=== PATIENT | female | born 1980 | race Asian ===

== ENCOUNTER 2024-12-05 04:25 | Inpatient (IN) | payer OTHER, SELFPAY ==
[2024-12-05] VITALS (36 sets, daily range): BP systolic 121–185; BP diastolic 78–132; BMI 22.9; BMI 20.9
[2024-12-05 01:35] LABS: Hematocrit 37.8 % (37.0-47.0); Hemoglobin 13.2 g/dL (12.0-16.0); Mean Corp Hgb Conc. 34.9 g/dL (33.0-37.0); Mean Corpuscular Volume 80.1 fL (81.0-99.0); Nucleated Red Blood Cells % 0 %; Platelet Count 370 10^3/uL (130-400); Red Cell Dist. Width 12.3 % (11.5-14.5)
[2024-12-05] MEDS: NSS 1000 IV (01:42)
[2024-12-05 01:51] LABS: HCG, Serum Qualitative Screen Negative
[2024-12-05 01:57] LABS: ALT (SGPT) 12 U/L (0-35); AST (SGOT) 20 U/L (14-36); Albumin 4.6 g/dl (3.5-5.0); Alkaline Phosphatase 82 U/L (38-126); Blood Urea Nitrogen 12 mg/dl (7-17); Calcium 9.5 mg/dl (8.4-10.2); Carbon Dioxide 25 mmol/L (22-30); Chloride 103 mmol/L (98-107); Estimated Creatinine Clearance 107 ml/min; Glucose 110 mg/dl (70-99); Potassium 3.4 mmol/L (3.5-5.1); Sodium 139 mmol/L (135-145); Total Protein 8.1 g/dl (6.3-8.2); eGFR > 60.00
[2024-12-05] MEDS: TORADOL 15 MG IV ×2 (02:01→06:14)
[2024-12-05] MEDS: ZOFRAN 4 MG IV ×3 (02:01→19:34)
[2024-12-05] MEDS: BELBUCA 300 MCG BUCCAL ×7 (02:25→23:33)
[2024-12-05] MEDS: REGLAN 10 MG IV (02:29)
--- NOTE | 2024-12-05 02:48 | ED.GENMED ---
History of Present Illness
<Jillian Gomes PA-C - Last Filed: 12/05/24 06:01>
General
Chief Complaint: Withdrawal Symptoms
Source: patient
Exam Limitations: none
Time Seen by Provider: 12/05/24 01:48
Nursing documentation reviewed up to this point in time: agreed with
History of Present Illness
History of Present Illness:
44-year-old female with a past medical history of opioid use disorder presents to the ER today with concerns of vomiting and abdominal discomfort. Patient was brought to the ER via EMS for nausea and vomiting. She is in police custody and is going
to longterm for drug use. Patient reports that she uses a bag of fentanyl every 3 hours. Her last use of this was at 7 PM. A few hours later, in custody, she started to lay on the floor and have profuse vomiting. She also complains of dizziness
intermittently and runny nose. Patient is reporting that 'it is from the drugs'. She denies any recent head or neck trauma. She denies any headaches. She denies any chest pain or shortness of breath. Patient reports that she also feels body
aches as well. She has not had any fevers or chills. She denies any other illicit drug use. She denies any alcohol use. She has no medical problems and is currently not taking any prescription medications
Review of Systems
<Jillian Gomes PA-C - Last Filed: 12/05/24 06:01>
Review of Systems
All Other Systems: ROS reviewed and negative except as documented in HPI and ROS
Phy Exam
<Jillian Gomes PA-C - Last Filed: 12/05/24 06:01>
Physical Exam
Physical Exam:
General: Patient has resting tremors, is agitated
Skin: Warm and dry, no rashes or lesions
Head: Normocephalic, atraumatic
Eyes: Sclera non-icteric. EOMs intact.
Nose: Copious amounts of clear mucus from the nares bilaterally
Cardiac: Regular rate and rhythm, no murmurs
Peripheral Vascular: No lower extremity swelling or edema
Pulm: Normal respiratory effort, no wheezes, rales, rhonchi
Abdomen: Abdomen is non-distended, no palpable abdominal masses
Neuro: CN II-XII intact, no focal neurologic deficits. Resting tremors of bilateral upper extremities.
Psychiatric: Appropriate mood and affect.
Course
<Jillian Gomes PA-C - Last Filed: 12/05/24 06:01>
Orders/Labs/Results
Orders:
Orders
12/05/24 01:25
Test Result ONCE
12/05/24 01:26
Alcohol Urgent
Complete Blood Count/With Diff Urgent
Comprehensive Metabolic Panel Urgent
HCG, Serum Qualitative Screen Urgent
12/05/24 01:41
0.9% Sodium Chloride 1000 ml [Nss] 1,000 ml IV BOLUS
12/05/24 01:46
Electrocardiogram (*1) Urgent
Reason for Study: Abdominal Pain
EKG- Treatment ONCE
12/05/24 01:56
Urine Drug Abuse Screen Urgent
Ketorolac [Toradol] 15 mg IV NOW STA
Ondansetron Injectable [Zofran] 4 mg IV NOW STA
12/05/24 01:57
Add On- LAB Urgent
Tests Added?: alcohol
12/05/24 02:19
Buprenorphine HCl [Belbuca] 300 mcg BUCCAL NOW STA
12/05/24 02:27
Metoclopramide [Reglan] 10 mg IV NOW STA
12/05/24 02:45
Dicyclomine HCl [Bentyl] 20 mg IM NOW STA
12/05/24 02:55
Buprenorphine HCl [Belbuca] 300 mcg BUCCAL NOW STA
12/05/24 03:11
Potassium Chloride [KCl] 40 meq 0.9% Sodium Chloride 250 ml [Nss] 250 ml IV NOW
12/05/24 03:17
Lorazepam [Ativan] 2 mg IV NOW STA
12/05/24 04:04
Clonidine [Catapres] 0.1 mg PO NOW STA
12/05/24 04:13
Admit/Transfer Patient As Directed
Co-Sign Provider:
Level of Care: Inpatient admission
Assign to:: IMU- Intermediate Care
Physician / Group: Guerrero
Diagnosis: opioid withdrawal
Reason for Hospitalization: Opioid withdrawal
Expected length of stay greater than two midnights?: Yes
ELOS- Estimated Length of Stay in days: 2
I certify the patient meets the requirements for IP care: Yes
PRN Pain Medication Management As Directed
May give lesser potent ordered pain med per pt: Yes
preference::
Protocol:: Medication orders for pain may be administered in a
manner that supports deferring to patient preference
when the pt is:
- Requesting an ordered lesser potent pain medication.
Least to most potent pain medications are defined
as: acetaminophen < NSAID < tramadol < opioids
(morphine, oxycodone, hydromorphone).
- Requesting a lesser dose of the same medication IF
ORDERED.
- Requesting a less intrusive route of administration
if both routes are prescribed by the provider (PO <
IV).
12/05/24 05:54
0.9% Sodium Chloride [Nss (Preservative Free)] See Protocol IV PRN PRN
Clonidine [Catapres] 0.1 mg PO Q6HPRN PRN
Diphenhydramine [Benadryl] 50 mg PO Q6HPRN PRN
Ketorolac [Toradol] 15 mg IV Q6HPRN PRN
Lactated Ringers [Lr] 1,000 ml IV 125 mls/hr
Lorazepam [Ativan] 2 mg IV ONCE PRN PRN
Naloxone [Narcan] 0.4 mg IV Q5MPRN PRN
Ondansetron Injectable [Zofran] 4 mg IV Q6HPRN PRN
Oxycodone [Roxicodone] 20 mg PO Q4HPRN PRN
Tizanidine [Zanaflex] 2 mg PO Q6HPRN PRN
12/05/24 05:54
Add On- LAB Urgent
Comments:: Xylazine Urine Drug Screen (send out)
Tests Added?: Xylazine
Electrocardiogram (*1) Routine
Reason for Study: QTc Monitoring
Comment: if not already done in ED
Case Management Consult ONCE
Case Management Consult: Other
Comment: opioid withdrawal
Fentanyl, Urine Urgent
Urine Drug Abuse Screen Urgent
Clinical Opioid Withdrawal Scale (COWS) Q4
Frequency:: now, Q4 hours x 24 hours, then PRN based on symptoms
Sequential Compression Device [Pneumatic Compression Sleeves] As Directed
Type: Knee high
DX Deep Vein Thrombosis Video Routine
12/05/24 Breakfast
Regular
At Your Request: Limited Participation
12/05/24 06:38
Alcohol Routine
[id number] IN AM
12/05/24 08:00
Buprenorphine HCl [Belbuca] 300 mcg BUCCAL Q4
Oxycodone Controlled Release [Oxycontin (Controlled Release)] 40 mg PO Q8
12/06/24 08:00
Buprenorphine [Subutex] 2 mg SL QID
12/07/24 08:00
Buprenorphine [Subutex] 4 mg SL QID
Oxycodone Controlled Release [Oxycontin (Controlled Release)] 20 mg PO Q8
12/08/24 04:16
Buprenorphine [Subutex] 2 mg SL Q4HPRN PRN
12/08/24 08:00
Buprenorphine [Subutex] 8 mg SL BID@08,1999
12/09/24 08:00
Buprenorphine [Subutex] 16 mg SL DAILY@0800
Abnormal Lab Results
12/05/24
01:26
WBC 14.6 H 10^3/uL
(4.8-10.8)
MCV 80.1 L fL
(81.0-99.0)
Absolute Neuts (auto) 12.1 H 10^3/uL
(1.4-6.5)
Neutrophils % 82.9 H %
(42.2-75.2)
Lymphocytes % 12.6 L %
(20.5-51.1)
Potassium 3.4 L mmol/L
(3.5-5.1)
Creatinine 0.5 L mg/dL
(0.6-1.0)
Glucose 110 H mg/dl
(70-99)
12/05/24 01:26
12/05/24 01:26
Vital Signs
Initial and Last Documented VS:
Initial Vital Signs
Temp Pulse Resp BP Pulse Ox
98.5 F 69 16 142/109 100
12/05/24 01:17 12/05/24 01:17 12/05/24 01:17 12/05/24 01:17 12/05/24 01:17
Last Documented Vital Signs
Temp Pulse Resp BP Pulse Ox
99.8 F 87 24 148/88 99
12/05/24 06:06 12/05/24 06:36 12/05/24 06:36 12/05/24 06:36 12/05/24 06:36
<Nida Martin, - Last Filed: 12/05/24 06:55>
Orders/Labs/Results
Orders:
Orders
12/05/24 01:25
Test Result ONCE
12/05/24 01:26
Alcohol Urgent
Complete Blood Count/With Diff Urgent
Comprehensive Metabolic Panel Urgent
HCG, Serum Qualitative Screen Urgent
12/05/24 01:41
0.9% Sodium Chloride 1000 ml [Nss] 1,000 ml IV BOLUS
12/05/24 01:46
Electrocardiogram (*1) Urgent
Reason for Study: Abdominal Pain
EKG- Treatment ONCE
12/05/24 01:56
Urine Drug Abuse Screen Urgent
Ketorolac [Toradol] 15 mg IV NOW STA
Ondansetron Injectable [Zofran] 4 mg IV NOW STA
12/05/24 01:57
Add On- LAB Urgent
Tests Added?: alcohol
12/05/24 02:19
Buprenorphine HCl [Belbuca] 300 mcg BUCCAL NOW STA
12/05/24 02:27
Metoclopramide [Reglan] 10 mg IV NOW STA
12/05/24 02:45
Dicyclomine HCl [Bentyl] 20 mg IM NOW STA
12/05/24 02:55
Buprenorphine HCl [Belbuca] 300 mcg BUCCAL NOW STA
12/05/24 03:11
Potassium Chloride [KCl] 40 meq 0.9% Sodium Chloride 250 ml [Nss] 250 ml IV NOW
12/05/24 03:17
Lorazepam [Ativan] 2 mg IV NOW STA
12/05/24 04:04
Clonidine [Catapres] 0.1 mg PO NOW STA
12/05/24 04:13
Admit/Transfer Patient As Directed
Co-Sign Provider:
Level of Care: Inpatient admission
Assign to:: IMU- Intermediate Care
Physician / Group: Guerrero
Diagnosis: opioid withdrawal
Reason for Hospitalization: Opioid withdrawal
Expected length of stay greater than two midnights?: Yes
ELOS- Estimated Length of Stay in days: 2
I certify the patient meets the requirements for IP care: Yes
PRN Pain Medication Management As Directed
May give lesser potent ordered pain med per pt: Yes
preference::
Protocol:: Medication orders for pain may be administered in a
manner that supports deferring to patient preference
when the pt is:
- Requesting an ordered lesser potent pain medication.
Least to most potent pain medications are defined
as: acetaminophen < NSAID < tramadol < opioids
(morphine, oxycodone, hydromorphone).
- Requesting a lesser dose of the same medication IF
ORDERED.
- Requesting a less intrusive route of administration
if both routes are prescribed by the provider (PO <
IV).
12/05/24 05:54
0.9% Sodium Chloride [Nss (Preservative Free)] See Protocol IV PRN PRN
Clonidine [Catapres] 0.1 mg PO Q6HPRN PRN
Diphenhydramine [Benadryl] 50 mg PO Q6HPRN PRN
Ketorolac [Toradol] 15 mg IV Q6HPRN PRN
Lactated Ringers [Lr] 1,000 ml IV 125 mls/hr
Lorazepam [Ativan] 2 mg IV ONCE PRN PRN
Naloxone [Narcan] 0.4 mg IV Q5MPRN PRN
Ondansetron Injectable [Zofran] 4 mg IV Q6HPRN PRN
Oxycodone [Roxicodone] 20 mg PO Q4HPRN PRN
Tizanidine [Zanaflex] 2 mg PO Q6HPRN PRN
12/05/24 05:54
Add On- LAB Urgent
Comments:: Xylazine Urine Drug Screen (send out)
Tests Added?: Xylazine
Electrocardiogram (*1) Routine
Reason for Study: QTc Monitoring
Comment: if not already done in ED
Case Management Consult ONCE
Case Management Consult: Other
Comment: opioid withdrawal
Fentanyl, Urine Urgent
Urine Drug Abuse Screen Urgent
Clinical Opioid Withdrawal Scale (COWS) Q4
Frequency:: now, Q4 hours x 24 hours, then PRN based on symptoms
Sequential Compression Device [Pneumatic Compression Sleeves] As Directed
Type: Knee high
DX Deep Vein Thrombosis Video Routine
12/05/24 Breakfast
Regular
At Your Request: Limited Participation
12/05/24 06:38
Alcohol Routine
[id number] IN AM
12/05/24 08:00
Buprenorphine HCl [Belbuca] 300 mcg BUCCAL Q4
Oxycodone Controlled Release [Oxycontin (Controlled Release)] 40 mg PO Q8
12/06/24 08:00
Buprenorphine [Subutex] 2 mg SL QID
12/07/24 08:00
Buprenorphine [Subutex] 4 mg SL QID
Oxycodone Controlled Release [Oxycontin (Controlled Release)] 20 mg PO Q8
12/08/24 04:16
Buprenorphine [Subutex] 2 mg SL Q4HPRN PRN
12/08/24 08:00
Buprenorphine [Subutex] 8 mg SL BID@0800,2000
12/09/24 08:00
Buprenorphine [Subutex] 16 mg SL DAILY@0800
Abnormal Lab Results
12/05/24
01:26
WBC 14.6 H 10^3/uL
(4.8-10.8)
MCV 80.1 L fL
(81.0-99.0)
Absolute Neuts (auto) 12.1 H 10^3/uL
(1.4-6.5)
Neutrophils % 82.9 H %
(42.2-75.2)
Lymphocytes % 12.6 L %
(20.5-51.1)
Potassium 3.4 L mmol/L
(3.5-5.1)
Creatinine 0.5 L mg/dL
(0.6-1.0)
Glucose 110 H mg/dl
(70-99)
12/05/24 01:26
12/05/24 01:26
Vital Signs
Initial and Last Documented VS:
Initial Vital Signs
Temp Pulse Resp BP Pulse Ox
98.5 F 69 16 142/109 100
12/05/24 01:17 12/05/24 01:17 12/05/24 01:17 12/05/24 01:17 12/05/24 01:17
Last Documented Vital Signs
Temp Pulse Resp BP Pulse Ox
99.8 F 87 24 148/88 99
12/05/24 06:06 12/05/24 06:36 12/05/24 06:36 12/05/24 06:36 12/05/24 06:36
<Jillian Gomes PA-C - Last Filed: 12/05/24 06:01>
MDM/Problems Addressed
Differential Diagnosis Includes:
Differentials include acute opioid withdrawal, xylazine withdrawal, alcohol withdrawal, gastroenteritis, functional gastrointestinal disorder, vestibular neuritis
MDM/Problems Addressed:
44-year-old female with a past medical history of opioid use disorder presents to the ER today with concerns of vomiting and abdominal discomfort. History and physical exam is consistent with acute opioid withdrawal. Patient was started on Belbuca
per opioid withdrawal algorithm. She is unable to tolerate p.o. oxycodone. Given multiple doses of antiemetics with initial relief but then symptoms would return. Please see update notes. On reassessment, patient became acutely hypertensive, is
still unable to tolerate p.o.. Will give dose of clonidine. Patient does have mild hypokalemia, in the setting of persistent vomiting, will replete. Patient will be referred for admission.
<Jillian Gomes PA-C - Last Filed: 12/05/24 06:01>
*Pulse Oximetry
SaO2: 100
Oxygen Mode of Delivery: Room air
Patient hypoxic: no
*Critical Care Note
Total Time (30-74mins, 75-104mins- exclusive of procedures): Not Applicable
<Jillian Gomes PA-C - Last Filed: 12/05/24 06:01>
Update Note
Update Note:
1:56 AM--patient was given dose of Zofran by EMS, will give dose IV. Will give Toradol for abdominal discomfort
2:19 AM--notified that patient had persistent symptoms, my attending did initiate opioid withdrawal protocol and she was given a dose of Belbuca
2:27 AM--patient having persistent vomiting, will give dose of Reglan
Patient still complaining of abdominal discomfort and cramping, will give dose of Bentyl
Update, potassium 3.4, in the setting of profuse vomiting, will replete IV, patient unable to tolerate p.o.
3:17 AM--patient started to have liquid stools
3:20 AM-- patient's tremors are returning, patient anxious, will give dose of Ativan
ED Attending Note
<Jillian Gomes PA-C - Last Filed: 12/05/24 06:01>
-
Portions of this chart may have been created with voice recognition software.� Occasional wrong word or��sound alike� substitutions may have occurred due to the inherent limitations of voice recognition software.
<Nida Martin DO - Last Filed: 12/05/24 06:55>
ED Attending Note
Patient seen and examined by attending physician: Yes
I performed a history and physical exam of patient and discussed management with resident, I reviewed resident's note and agree with documented findings and plan of care.: Yes
ED Attending Note:
This is a 44-year-old woman with history of substance abuse, admits to snorting fentanyl and generally 1 bag every 3 hours.
She is brought to the ED by police after a routine traffic stop. Police found that there are several outstanding warrants for patient's arrest.
Their plan was to transport to [facility] however patient began with nausea, vomiting, tremulousness and feels that she is going through withdrawal. Her last fentanyl use was 7 PM.
44-year-old woman appears her stated age.
Awake and alert, appears in moderate distress, tremulous, frequent retching. Initial COWS approximately 20
Heart is regular rate and rhythm.
Lungs are clear to auscultation. No respiratory distress.
Clinically patient is in moderate opioid withdrawal.
Significant concern for xylazine/medetomidine withdrawal
Thus far no improvement in nausea, frequent retching despite 2 doses of Zofran.
Therefore unable to initiate oral medications.
Thus far tolerating microdoses of buprenorphine
Initially normotensive. Blood pressure is trending up, concern for xylazine withdrawal.
Will trial an oral dose of clonidine
Overall patient has had only mild improvement in symptoms, will require inpatient treatment for continued moderate to severe opioid withdrawal symptoms
correctional officer, who was at bedside is now signing off as patient will be admitted.
They request police be notified at time of discharge.
Discharge Plan
Departure
Patient Disposition: Admit
Date of Disposition: 12/05/24
Time of Disposition: 04:09
Admit to: Med/Surg
Presentation/result/management discussed w/ accepting MD/DO: Hospitalist
Patient with high blood pressure during this ER visit?: Yes
Condition: Fair
Discharge Problem:
Acute opioid withdrawal
Interventions
Interventions:
*Risk Screen - Suicide Last Done: 12/05/24 01:21
*General Assessment Last Done: 12/05/24 01:15
*Neglect/Abuse Screening Last Done: 12/05/24 01:21
*ED- Fall Risk Assessment Last Done: 12/05/24 01:17
*ED COVID-19 Vaccine History Last Done: 12/05/24 01:17
*ED Influenza Vaccine History Last Done: 12/05/24 01:17
*Nursing Disposition Last Done: 12/05/24 06:15
ED- Neurological Assessment Last Done: 12/05/24 01:54
ED-Psychological Assessment Last Done: 12/05/24 01:54
Discharge Date and Time
Discharge Date/Time: 12/05/24 06:16
[2024-12-05] MEDS: BENTYL 20 MG IM (02:55)
[2024-12-05] MEDS: ATIVAN 2 MG IV ×2 (03:21→06:49)
[2024-12-05] MEDS: KCL 270 MEQ IV (03:27)
[2024-12-05] MEDS: CATAPRES 0.1 MG PO ×5 (04:26→23:33)
--- NOTE | 2024-12-05 04:46 | HPS.HSE ---
Family Physician
-
Family Physician: NOT KNOW UNKNOWN - PT DOES
Chief Complaint
-
Opioid withdrawal
History of Present Illness
This is a 44-year-old female with past medical history of fentanyl abuse. Presents to the emergency department via police custody for withdrawal symptoms.
Patient reported his last use of fentanyl was around 7 PM. She started having nausea vomiting diaphoresis a few hours after that. Is unclear why she was in custody. He reports using fentanyl usually every 3 hours. She denies any other drug use.
She usually inhales the fentanyl via her nostrils. She denies any IV drugs. She denies alcohol use. She denies tobacco use.
She reports that she has had prior admissions for withdrawal but is unable to give details at this time.
In the emergency department she was afebrile, blood pressure was 138/78, pulse was 77 and she was satting 100% on room air.
CBC was unremarked. Electrolytes BUN/creatinine were normal. Alcohol level was undetectable
Medical History
Past Medical History
Past Medical History: Reports Other (Fentanyl dependence)
Past Surgical History: Reports None
Social History
Tobacco: Non-smoker
Alcohol: None
Drug: Narcotics
Living: With Family
Family History
Family History: Not pertinent
Allergies / Home Medications
Allergies reflects when Allergies were last updated in [facility].
Home Medications with original date entered in [facility]
Allergy/Medication List:
Allergies
Allergy/AdvReac Type Severity Reaction Status Date / Time
No Known Allergies Allergy Verified 12/05/24 01:15
Home Medications
No Meds [No Current Medications] 12/05/24
Review of Systems
-
Unable to obtain full review of systems at this time due to: Acuity
Physical Exam
Vital Signs
Vital Signs
Temp Pulse Resp BP Pulse Ox
98.5 F 81 24 162/85 100
12/05/24 01:17 12/05/24 04:30 12/05/24 04:30 12/05/24 04:26 12/05/24 04:30
Physical Exam
General: Appears in Distress and Sweats
HEENT: NormoCephalic, Anicteric, Atraumatic and PERRLA; No Oxygen
Respiratory: Clear
Cardiac: S1/S2 and Regular Rhythm
Breast: Deferred by me
GI: Soft and Normal Bowel Sounds
Rectal: Deferred by Provider
Genito-urinary: Deferred by me
Musculoskeletal: No Clubbing, No Cyanosis and No Edema
Skin: Warm
Neuro: AO x 3 and Nonfocal/grossly intact
Psych: Agitated; No Confused, Depressed or Suicidal
Laboratory Results
-
12/05/24 01:26
12/05/24 01:26
Laboratory Results
Total Bilirubin 0.6 mg/dl (0.2-1.3) 12/05/24 01:26
AST 20 U/L (14-36) 12/05/24 01:26
ALT 12 U/L (0-35) 12/05/24 01:26
Alkaline Phosphatase 82 U/L (38-126) 12/05/24 01:26
Data Reviewed
-
Lab Data: Labs Reviewed by me
Old Records: Reviewed
Impression/Plan
-
IMPRESSION:
44-year-old female with past medical history significant for fentanyl abuse which she uses 1 bag about every 3 hours via nasal inhalation presenting to the emergency department with withdrawal symptoms several hours after last use at around 7 PM on
Thursday. She reports prior hospitalizations for fentanyl withdrawal. She is not aware of any ICU stay for fentanyl. She does not inject IV drug use and denies any other drug use. COWS score was 12 after initial medications in the emergency
department.
PLAN:
Opioid withdrawal secondary to chronic fentanyl use
-Admit to IMU for now
-Placed on buprenorphine microdosing withdrawal protocol for opioid withdrawal which is abdominal pain
-Buprenorphine taper per protocol
-Supplementary opioids per protocol
- Adjunctive medications per protocol including clonidine and lorazepam
- IV fluids
DVT prophylaxis with SCDs
Code Status - Full Code
Patient is in custody and 911 will need to be called at discharge for return to police.
[2024-12-05] MEDS: LR 1000 IV ×3 (06:10→23:33)
[2024-12-05] MEDS: COMPAZINE 5 MG IV (06:49)
[2024-12-05] MEDS: NSS (PRESERVATIVE FREE) 1 ML IV (06:49)
--- NOTE | 2024-12-05 07:31 | PTCARENOTE ---
assumed care of patient from ED. pt is oriented, knows she is in the hospital. pt arrives to floor nauseous and vomiting multiple times all over self. pt is inc. of stool multiple times. pt cleaned up multiple times. stating her stomach is
uncomfortable. tried to use bedpan to obtain urine specimen, but mixed with stool. COWS score of 23. notified covering [facility] [place], pt unable to take anything PO at this time. not due for any medications. STAT IV compazine and ativan given per APR.
pt noted to be sleeping after administration. IV fluids infusing. pt admits to snorting 1 bag of fentanyl every 3 hours. bed alarm on for patient safety. ED nurse came up to floor stating patient gave all belongings to security. pt remains
cooperative at this time. asking this RN where the petrophysicist went. report given to dayshift RN. care ongoing.
--- NOTE | 2024-12-05 08:49 | W.PN.HOSP.TC ---
Today's Communication/Plan
-
see PN
Assessment / Plan
Assessment / Plan
44yo F with PMHx of drug abuse came with nausea and vomiting, concerning for opioid withdrawal. SHe uses Fentannyl and last use was hours before admission. Poor historian due to significant distress
A/P:
#Possible opioid withdrawal
timing of last fentanyl use cannot explain severity of the symptoms
Check lipase
CT abd with unexplained abd pain and leukocytosis
Microdosing protocol (unfortunately patient vomited out oral Oxycodone - provide one dose IV)
IVF
Zofran
UDS pending - use straight cath
RN to watch for obtundent or respiratory depression - naloxon PRN
#hypokalemia
replete and follow
DVT ppx hep
Full code
I have spent at least 58min reviewing chart, test results, providing direct patient care
Anticipated Discharge: > 48 hours
Subjective/Interval History
-
Date of Service: December 05, 2024
Objective Data
-
Labs:
Laboratory Results
12/05/24 12/05/24 12/05/24
01:26 06:38 07:48
WBC 14.6 H
Hgb 13.2
Hct 37.8
Plt Count 370
Sodium 139
Potassium 3.4 L
Chloride 103
Carbon Dioxide 25
BUN 12
Creatinine 0.5 L
Glucose 110 H
Calcium 9.5
Total Bilirubin 0.6 Cancelled Pending
AST 20 Cancelled Pending
ALT 12 Cancelled Pending
Alkaline Phosphatase 82 Cancelled Pending
Vital Signs:
Vital Signs
Temp Pulse Resp BP Pulse Ox
99.8 F 87 24 148/88 99
12/05/24 06:06 12/05/24 06:36 12/05/24 06:36 12/05/24 06:36 12/05/24 06:36
I&O
12/04/24 12/05/24 12/06/24
06:59 06:59 06:59
Output Total 400 / 400
Balance -400 / -400
Review of Systems
-
History Source: Patient
All other systems: Reviewed and negative
Abdomen/GI: Reports Abdominal Pain, Nausea and Vomiting
Physical Exam
-
General: Appears in Distress
HEENT: Moist Mucous Membranes
Respiratory: Clear to Auscultation
Cardiac: Regular Rhythm and Tachycardic
GI: Soft, Nondistended and Tender (diffusely)
Neuro: Awake, Alert, Oriented and AO x 3
Psych: Anxious
[2024-12-05] MEDS: DILAUDID 1 MG IV (09:07)
[2024-12-05 09:38] LABS: Lipase 60 U/L (23-300)
--- NOTE | 2024-12-05 10:17 | CON.INTV ---
Consultation
Consultation Request
Date/Time Consultation Requested: 12/05
Date/Time Consultation Performed: 12/05
Reason for Consultation: Critical care
Medical History
-
History of Present Illness:
History of present obtained from the chart review and primary service. Patient is unable to provide history given acute withdrawal, emesis at this time. Patient is a 44-year-old female with history of opioid use disorder who was brought to the ER
via EMS for nausea and emesis. Patient was apparently in police custody for drug use. Per ED records, she uses a bag of fentanyl every 3 hours, last use around 7 PM on the day of admission. While in custody, she had significant emesis. Upon
arrival to [facility], afebrile, pulse 69, reading at 16, blood pressure 142/109, 100% saturation. Patient was given IV fluids, Reglan x 1, buprenorphine, Ativan, clonidine. She was initially admitted to intermediate unit but then
developed increased nausea, tremulousness, tachycardia and transferred to ICU for opioid withdrawal. We are asked to help from critical care standpoint 12/05/2024
.
PMH: Fentanyl dependence. Additional history not obtainable at this time
Past Medical History
Past Medical History: None (See above)
Past Surgical History: None (See above)
Social History
Tobacco: Non-smoker
Alcohol: None
Drug: Other (Fentanyl)
Living: With Family (Per ED records) and [facility] (Was in police custody)
Family History
Family History: Unable to Obtain
Allergies / Home Medications
Allergies
Allergy/AdvReac Type Severity Reaction Status Date / Time
No Known Allergies Allergy Verified 12/05/24 01:15
Home Medications
�Medication �Instructions �Recorded �Confirmed �Last Taken �Type
No Meds [No Current Medications] 12/05/24 12/05/24 Unknown History
Review of Systems
-
Unable to Obtain full review of systems at this time due to: Acuity
All other systems: Negative unless noted
Vitals / Labs / Diagnostic Testing
Vital Signs
Temp Pulse Resp BP Pulse Ox
98.4 F 87 24 148/88 99
12/05/24 07:45 12/05/24 06:36 12/05/24 06:36 12/05/24 06:36 12/05/24 06:36
Lab Data
12/05/24 01:26
12/05/24 01:26
Diagnostic Testing:
Physical Exam
-
HEENT: Normocephalic and Anicteric
Cardiovascular: S1/S2, Regular Rhythm (Tachycardia), Murmur (n), Rub (n) and Peripheral Edema (n)
Respiratory: Wheeze (n), Rales (n), Rhonchi (n) and Non-Labored Respirations
GI: Soft and Non Distended
Neurology: Awake, Alert, Tremors (Yes) and Other
Skin: Good Color and Other (No rash)
General: Other (Tremulous)
Assessment
-
44-year-old female with daily fentanyl use, was in police custody when developed significant emesis, dizziness. Apparently last dose of fentanyl was 7 PM 12/04. Patient was brought to [place] ED where she was subsequently admitted for opioid
withdrawal secondary to chronic fentanyl use. Patient was started on opioid withdrawal protocol. She developed increased nausea, tachycardia and subsequently transferred to ICU 12/05
Opioid withdrawal
Transferred to ICU 12/05
Buprenorphine protocol
Nausea/emesis, abdominal pain
Likely secondary to withdrawal
Tachycardia
Mild leukocytosis
Hypokalemia
Daily fentanyl use
Plan/recommendations
At this time, patient is critically ill
Suspect opioid withdrawal based on history
Patient unable to tolerate p.o. at this time given nausea/emesis
Moving forward
Transition to IV Dilaudid
Compazine, Zofran as needed for nausea
Lipase, hCG normal
IV fluids, folate, thiamine
Attempt buccal buprenorphine as able
May require Precedex depending on how she does
Head of bed elevated, aspiration precautions
Chest x-ray, EKG
DVT prophylaxis: Subcutaneous heparin every 8 hours
GI prophylaxis: Will start IV Protonix
Reviewed with critical care nursing, primary service
TCCT 35 min
[2024-12-05] MEDS: FOLVITE PO (10:18)
[2024-12-05] MEDS: COMPAZINE 10 MG IV (11:36)
--- NOTE | 2024-12-05 11:36 | PTCARENOTE ---
recieved pt this am with cows scale of 23. pt vomiting and unable to take oral meds. hospitalist notified. iv dilaudid 1 mg given per order. cows increased to 30. 2 mg iv ativan given with no decrease in symptoms. pt transferred to ICU. report given
to recieving RNJackie.
[2024-12-05] MEDS: FOLVITE 50.2 MG IV (11:39)
--- NOTE | 2024-12-05 12:00 | PTCARENOTE ---
Received pt. s/p transfer to ICU @ approx 1200; upgraded for increased opioid withdrawal symptoms; COWS increased- see flow sheet. Pt. intermittently drowsy/restless; awakens to verbal stimuli; Ox self/situation, required reorientation to
time/place. ST on monitor. SpO2 97% on RA. Diminished breath sounds posteriorly ; poor effort. +BS, abd soft/nt; n/v/d. Inc b/b @ x's; otherwise uses bedpan. #20 R FA w LR @ 125mL/hr infusing w K+ rider- see MARILYN. to bedside; aware of pt.'s
mentation/inability to take oral meds; w/drawal protocol switched to IV- see MARILYN. Diaphoretic; soaking linen. Complete hygiene provided. Bed alarm active. Safe environment maintained.
[2024-12-05] MEDS: DILAUDID 2 MG IV ×4 (12:04→23:34)
[2024-12-05] MEDS: PRECEDEX 100 IV ×3 (12:22→23:02)
[2024-12-05] MEDS: PROTONIX IV 40 MG IV (13:07)
[2024-12-05] MEDS: NSS (PRESERVATIVE FREE) 10 ML IV (13:08)
[2024-12-05] MEDS: ZANAFLEX 2 MG PO ×2 (13:18→19:33)
--- NOTE | 2024-12-05 13:28 | CM ---
Unable to completed initial assessment as the patient is severely withdrawing from opiods and then had to go to the ICU this morning. Patient has no previous hospitalization nor next if kin. CM to follow up when able to.
--- NOTE | 2024-12-05 13:42 | W.PN.UPDATE ---
Update Note
Progress Note Update
defer CT abd since no obvious signs of acute abdomen. Will reconsider if not improving on withdrawal mgmt
[2024-12-05 15:55] LABS: Hematocrit 36.1 % (37.0-47.0); Hemoglobin 12.2 g/dL (12.0-16.0); Mean Corp Hgb Conc. 33.8 g/dL (33.0-37.0); Mean Corpuscular Volume 83.4 fL (81.0-99.0); Platelet Count 468 10^3/uL (130-400); Red Cell Dist. Width 12.8 % (11.5-14.5)
[2024-12-05 16:07] LABS: AST (SGOT) 26 U/L (14-36); Albumin 4.5 g/dl (3.5-5.0); Alkaline Phosphatase 91 U/L (38-126); Blood Urea Nitrogen 7 mg/dl (7-17); Calcium 9.3 mg/dl (8.4-10.2); Carbon Dioxide 18 mmol/L (22-30); Chloride 108 mmol/L (98-107); Estimated Creatinine Clearance 117 ml/min; Glucose 136 mg/dl (70-99); Magnesium 1.6 mg/dl (1.6-2.3); Potassium 3.8 mmol/L (3.5-5.1); Sodium 143 mmol/L (135-145); Total Protein 7.6 g/dl (6.3-8.2); eGFR > 60.00
[2024-12-05] MEDS: HEPARIN 5000 UNITS SC ×2 (16:08→23:34)
[2024-12-05 16:13] LABS: INR 1.20; PT 15.5 Sec (11.4-14.6)
[2024-12-05 16:14] LABS: APTT 33.2 Sec (23.4-35.0)
[2024-12-05] MEDS: MAGNESIUM SULFATE 50 IV (17:04)
[2024-12-05 17:06] LABS: ALT (SGPT) < 20 U/L (0-35)
--- NOTE | 2024-12-05 18:18 | PTCARENOTE ---
Initiated Precedex gtt @ 1222 for increased RASS- see flow sheet. Pt. remains drowsy/very restless all over bed. Constantly repositioned to prevent asp from n/v. Admin 1x dose IV Compazine; vomiting subsides post medical secretary teacher, tolerated sip of PO
intake; admin PO zanaflex/clonidine prn- see APR. S/P med prn/sceduled medical secretary teacher- pt. tachycardia/HTN remain but improving. Blood work drawn and sent to lab; Mag rider ordered and infusing-see APR. EKG competed; pt. very tremulous @ that time. CXR
and ABD x-ray completed @ bedside. Bed alarm active. Safe environment maintained.
[2024-12-05] MEDS: THIAMINE INJECTION 200 MG IV (19:35)
--- NOTE | 2024-12-05 20:37 | PTCARENOTE ---
3362 - Assumed care of patient at 1900. Patient oriented to self and situation - disoriented to time @ times and unaware of which hospital she is in. Patient confused @ times and forgetful requiring frequent reorientation. Periods of drowsiness
followed by restlessness. Patient diaphoretic and tremulous. Patient on COWS - see worklist. ST on monitor. POX 99% on RA, tachypneic @ times w/ poor effort. Abd soft w/ +BS; patient w/ n/v - PRN zofran given - see APR. Precedex and LR infusing as
ordered through RFA #20 - see worklist. 22 LFA capped.
[2024-12-06] VITALS (44 sets, daily range): BP systolic 99–165; BP diastolic 56–118; BMI 20.6
--- NOTE | 2024-12-06 00:15 | PTCARENOTE ---
Systems reviewed. Patient's Precedex gtt increased d/t increased RASS - see worklist. Patient vomited small amounts of green/brown emesis x2.
[2024-12-06] MEDS: ZANAFLEX 2 MG PO ×3 (01:35→21:04)
[2024-12-06] MEDS: ZOFRAN 4 MG IV ×2 (02:43→09:03)
[2024-12-06] MEDS: CATAPRES 0.1 MG PO ×4 (02:46→21:52)
[2024-12-06] MEDS: PRECEDEX 100 IV ×5 (03:02→22:58)
[2024-12-06] MEDS: BELBUCA 300 MCG BUCCAL (03:32)
[2024-12-06] MEDS: DILAUDID 2 MG IV ×6 (03:32→23:51)
[2024-12-06 04:12] LABS: Hematocrit 31.0 % (37.0-47.0); Hemoglobin 10.5 g/dL (12.0-16.0); Mean Corp Hgb Conc. 33.9 g/dL (33.0-37.0); Mean Corpuscular Volume 82.2 fL (81.0-99.0); Nucleated Red Blood Cells % 0 %; Platelet Count 384 10^3/uL (130-400); Red Cell Dist. Width 13.1 % (11.5-14.5)
[2024-12-06 04:31] LABS: ALT (SGPT) 12 U/L (0-35); AST (SGOT) 27 U/L (14-36); Albumin 3.6 g/dl (3.5-5.0); Alkaline Phosphatase 70 U/L (38-126); Blood Urea Nitrogen 4 mg/dl (7-17); Calcium 8.5 mg/dl (8.4-10.2); Carbon Dioxide 18 mmol/L (22-30); Chloride 110 mmol/L (98-107); Estimated Creatinine Clearance 117 ml/min; Glucose 94 mg/dl (70-99); Potassium 2.9 mmol/L (3.5-5.1); Sodium 137 mmol/L (135-145); Total Protein 6.5 g/dl (6.3-8.2); eGFR > 60.00
[2024-12-06] MEDS: TYLENOL 650 MG PO (04:32)
[2024-12-06 04:46] LABS: Magnesium 2.1 mg/dl (1.6-2.3)
[2024-12-06] MEDS: KCL 270 MEQ IV ×2 (04:49→10:45)
--- NOTE | 2024-12-06 06:02 | PTCARENOTE ---
Patient w/ axillary temp of 100.8. RESOURCE CONSERVATION SPECIALIST notified. PRN PO Tylenol ordered. When attempting to administer Tylenol - patient vomited at least 1 of 2 Tylenol pills into emesis bag. Rechecked temp approximately 1hr later - axillary temp of 100.4. Patient
inconsistently tolerating PO intake d/t N/V - PRN Zofran given - see APR.
[2024-12-06] MEDS: LR 1000 IV ×3 (06:40→22:59)
[2024-12-06] MEDS: THIAMINE INJECTION 200 MG IV ×2 (07:50→19:23)
[2024-12-06] MEDS: HEPARIN 5000 UNITS SC (07:50)
[2024-12-06] MEDS: NSS (PRESERVATIVE FREE) 10 ML IV (07:50)
[2024-12-06] MEDS: PROTONIX IV 40 MG IV (07:50)
[2024-12-06] MEDS: SUBUTEX 2 MG SL ×4 (07:51→21:52)
--- NOTE | 2024-12-06 07:56 | W.PN.INTV ---
Addendum entered and electronically signed by Brittnee Solo MD 12/06/24 17:19:
Tachycardia has improved
Fever curve improved
No abdominal pain, nausea improved
Hold off on abdominal CT imaging for now
Original Note:
Today's Communication / Plan
Recommendations
Wean Precedex
Increase clonidine as able
Continue with buprenorphine protocol
Continue with Dilaudid
Panculture, check UA
Aspiration precautions
Replete potassium
Assessment
-
44-year-old female with daily fentanyl use, was in police custody when developed significant emesis, dizziness. Apparently last dose of fentanyl was 7 PM 12/04. Patient was brought to [place] ED where she was subsequently admitted for opioid
withdrawal secondary to chronic fentanyl use. Patient was started on opioid withdrawal protocol. She developed increased nausea, tachycardia and subsequently transferred to ICU 12/05
Opioid withdrawal
Transferred to ICU 12/05
Buprenorphine protocol
Nausea/emesis, abdominal pain
Likely secondary to withdrawal
Tachycardia
Mild leukocytosis
Hypokalemia
Daily fentanyl use
Plan/recommendations
At this time, patient is critically ill
Suspect opioid withdrawal based on history
Patient unable to tolerate consistent p.o. at this time given nausea/emesis, but improved
Moving forward
Continue IV Dilaudid
Compazine, Zofran as needed for nausea
Lipase, hCG normal
Wean Precedex
Continue with clonidine, increase dose as able, will start patch
Continue with buprenorphine protocol
IV fluids, folate, thiamine
N.p.o. except medications now given dry heaving, nausea
Head of bed elevated, aspiration precautions
Chest x-ray unremarkable
Abdominal film with possible calcification, cannot tell whether this may be part of ureteral system
Replete potassium
Repeat in p.m.
Check UA
Panculture with low-grade fevers
Depending on clinical status, may require abdominal imaging
DVT prophylaxis: Subcutaneous heparin every 8 hours, will transition to Lovenox
GI prophylaxis: Okay to discontinue Protonix. Nausea likely secondary to withdrawal symptoms
Reviewed with critical care nursing, pharmacy, respiratory care
Reviewed with
TCCT 31 min
Subjective Dataa
Subjective Data
Date of Service:
Date of Service: December 06, 2024
Subjective:
Patient appears to be less tremulous this morning, and although still with occasional nausea/dry heaving, seems to be overall improved. Remains tachycardic but improved. Currently on Precedex, Dilaudid. Able to tolerate oral clonidine and
buprenorphine
Objective Data
Data Reviewed
Vital Signs / I&O / Oxygen:
Vital Signs
Temp Pulse Resp BP Pulse Ox
100.4 F H 112 30 141/99 98
12/06/24 05:33 12/06/24 06:30 12/06/24 06:30 12/06/24 06:30 12/06/24 06:30
Intake and Output
12/05/24 12/06/24 12/07/24
06:59 06:59 06:59
Intake Total 3295.8 / 3295.8
Output Total 400 / 400 925 / 925
Balance -400 / -400 2370.8 / 2370.8
SaO2 98
Physical Exam
General: Other (Fatigued appearing, mildly tremulous)
HEENT: Normocephalic and Anicteric
Cardiovascular: S1-S2, Regular Rhythm (Tachycardia), Murmur (n), Rub (n) and Peripheral Edema (n)
Respiratory: Wheeze (n), Crackles (n), Rhonchi (n) and Non-Labored Respirations
GI: Soft, Non Distended and Non Tender
Neurology: Lethargic (Opens eyes)
Skin: Jaundice (n), Rash (n) and Bruising (n)
Labs/Micro/Reports
Lab Data
12/06/24 03:40
Laboratory Results
12/05/24
15:39
PT 15.5 H
INR 1.20
APTT 33.2
--- NOTE | 2024-12-06 08:00 | PTCARENOTE ---
Received pt @ change of shift. Pt. int drowsy/restless; ox3; anx/forgetful @x's, redirected. COWS per protocol and pt. medicated w standing/rpn medication for moderate withdrawal symptoms- see MAR/ flow sheet. SR/ST on monitor. SpO2 99% on RA. +BS,
abd soft/tender. NPO ex meds/sips/chips maintained. Nausea w int episodes w small amt of emesis. Cont b/b; uses bedpan approp. #20 R FA w LR @ 125mL/hr, dex gtt, and K+ rider- see MAR/ flow sheet. #22 L FA patent, dressing c/d/i. Bed alarm active.
Pt. instructed on how to report care concerns, call porter in reach and uses approp.
[2024-12-06] MEDS: FOLVITE PO (08:02)
[2024-12-06] MEDS: FOLVITE 1 MG PO (09:19)
--- NOTE | 2024-12-06 09:20 | W.PN.HOSP.TC ---
Today's Communication/Plan
-
cont precedex and suboxone with parenteral and oral opioids
CT abd/pelvis
infectious w/u
Assessment / Plan
Assessment / Plan
44yo F with PMHx of drug abuse came with nausea and vomiting, concerning for opioid withdrawal. SHe uses Fentannyl and last use was hours before admission. Poor historian due to significant distress
A/P:
#opioid withdrawal
timing of last fentanyl use cannot explain severity of the symptoms
Check lipase
CT abd with unexplained abd pain and leukocytosis
Microdosing protocol (unfortunately patient vomited out oral Oxycodone - provide one dose IV)
IVF
Zofran
UDS with opioids, fentanyl, suboxone
RN to watch for obtundent or respiratory depression - naloxon PRN
#Leukocytosis
#Fever
possibly 2/2 withdrawal
Chest XR w/o pneumonia
check UA
Check Bcx
Follow off Abx for now
#Nephrolithiasis on abd CT
with fever - check CT abd/pelvis to r/o obstructing stone
#hypokalemia
replete and follow
DVT ppx hep
Full code
I have spent at least 55min reviewing chart, test results, providing direct patient care
Anticipated Discharge: > 48 hours
Subjective/Interval History
-
Date of Service: December 06, 2024
Objective Data
-
Labs:
Laboratory Results
12/06/24 12/06/24 12/06/24
03:40 12:00 13:59
WBC 22.2 H
Hgb 10.5 L
Hct 31.0 L
Plt Count 384
Sodium 137 Cancelled
Potassium 2.9 L Cancelled Pending
Chloride 110 H Cancelled
Carbon Dioxide 18 L Cancelled
BUN 4 L Cancelled
Creatinine 0.5 L Cancelled
Glucose 94 Cancelled
Calcium 8.5 Cancelled
Total Bilirubin 1.3
AST 27
ALT 12
Alkaline Phosphatase 70
Vital Signs:
Vital Signs
Temp Pulse Resp BP Pulse Ox
99.3 F 112 30 141/99 98
12/06/24 08:07 12/06/24 06:30 12/06/24 06:30 12/06/24 06:30 12/06/24 06:30
I&O
12/05/24 12/06/24 12/07/24
06:59 06:59 06:59
Intake Total 3295.8 / 3511.7 767.7 / 767.7
Output Total 400 / 400 925 / 925 200 / 200
Balance -400 / -400 2370.8 / 2586.7 567.7 / 567.7
Review of Systems
-
History Source: Patient
All other systems: Reviewed and negative
Abdomen/GI: Reports Abdominal Pain and Nausea
Physical Exam
-
General: Comfortable
HEENT: Normocephalic
Respiratory: Clear to Auscultation
Cardiac: Regular Rhythm and Tachycardic
GI: Soft and Nontender
Musculoskeletal: No Clubbing, No Cyanosis and No Edema
Psych: Calm
[2024-12-06 09:36] LABS: COVID-19 Antigen Negative (Negative)
[2024-12-06 09:48] LABS: Urine Character Clear (Clear)
[2024-12-06 10:19] LABS: Urine Squamous Cell >30 /LPF (Few)
[2024-12-06] MEDS: CATAPRES 0.2 MG PO ×3 (12:08→23:51)
[2024-12-06] MEDS: CATAPRES-TTS-3 0.3 MG TRANSDERM (12:15)
--- NOTE | 2024-12-06 13:00 | PTCARENOTE ---
pt. remains w mild-moderate withdrawal symptoms; protocol followed- see MAR/ flow sheet. Admin PRN/standing clonidine; small episodes of vomiting s/p both intermediate manager. R upper arm clonidine patch applied per orders- see flow sheet. Precedex gtt
tapered as tolerated- see flow sheet. Second K+ rider infusing; plan to recheck K+ level later today. COVID/flu swabs; UA culture; BC x2 drawn and sent to lab; awaiting results. Bed alarm active. Call charlotte w in reach.
--- NOTE | 2024-12-06 13:37 | CM ---
Attempted initial assessment with patient. She is currently in opiate withdrawal. Hands trembling. Eyes closed and unable to respond to CM questioning. No identifiable contact for patient. Will defer assessment at this time and will attempt when
patient is able to participate.
[2024-12-06 16:04] LABS: Potassium 3.6 mmol/L (3.5-5.1)
[2024-12-06] MEDS: LOVENOX 40 MG SC (17:50)
--- NOTE | 2024-12-06 21:42 | PTCARENOTE ---
Assumed care of patient at 1900. Patient AAOx3, forgetful/anxious/drowsy. COWS maintained per protocol - see MAR/worklist. SR/ST on monitor. POX 96-99% on RA - tachypneic @ times. Abd soft/nontender w/ +BS - reports no nausea at this time. Patient
continent of bowel and bladder - ringing appropriately. 20 RFA w/ LR and Dex gtt running as ordered - see APR/worklist. 22 LFA capped.
[2024-12-07] VITALS (26 sets, daily range): BP systolic 131–173; BP diastolic 90–108; BMI 20.5
--- NOTE | 2024-12-07 00:50 | PTCARENOTE ---
Systems reviewed. Precedex gtt tapered as patient tolerated - see worklist. Patient w/ mild withdrawal symptoms - treated w/ PRNs - see APR.
[2024-12-07 03:08] LABS: Hematocrit 29.4 % (37.0-47.0); Hemoglobin 10.2 g/dL (12.0-16.0); Mean Corp Hgb Conc. 34.7 g/dL (33.0-37.0); Mean Corpuscular Volume 80.5 fL (81.0-99.0); Nucleated Red Blood Cells % 0 %; Platelet Count 368 10^3/uL (130-400); Red Cell Dist. Width 13.7 % (11.5-14.5)
[2024-12-07] MEDS: DILAUDID 2 MG IV ×2 (03:14→08:09)
[2024-12-07 03:31] LABS: ALT (SGPT) 12 U/L (0-35); AST (SGOT) 24 U/L (14-36); Albumin 3.6 g/dl (3.5-5.0); Alkaline Phosphatase 64 U/L (38-126); Blood Urea Nitrogen 3 mg/dl (7-17); Calcium 8.4 mg/dl (8.4-10.2); Carbon Dioxide 19 mmol/L (22-30); Chloride 109 mmol/L (98-107); Estimated Creatinine Clearance 115 ml/min; Glucose 92 mg/dl (70-99); Magnesium 2.0 mg/dl (1.6-2.3); Potassium 3.0 mmol/L (3.5-5.1); Sodium 140 mmol/L (135-145); Total Protein 6.4 g/dl (6.3-8.2); eGFR > 60.00
[2024-12-07] MEDS: KCL 270 MEQ IV ×2 (03:59→19:55)
[2024-12-07] MEDS: KCL ELIXIR 40 MEQ PO (03:59)
[2024-12-07] MEDS: ZANAFLEX 2 MG PO ×3 (03:59→21:41)
--- NOTE | 2024-12-07 04:29 | PTCARENOTE ---
Patient w/ runs of bigeminy/frequent PVCs on monitor. Patient asymptomatic. SKATE HOP notified. ECG obtained. KCl elixir and IV Potassium ordered. Patient tolerated approximately 1oz out of 4oz of KCl elixir. IV potassium infusing as ordered through LFA
IV. SKATE HOP aware of patient unable to tolerate whole KCl elixir.
[2024-12-07] MEDS: CATAPRES 0.1 MG PO (04:34)
[2024-12-07] MEDS: CATAPRES 0.2 MG PO ×3 (06:02→17:37)
--- NOTE | 2024-12-07 07:15 | PTCARENOTE ---
Received patient in sleep, arousable to voice, A&Ox3, on RA, NSR with prolonged QTc, BP WNL, on Precedex drip and IVF, denied N/V and pain throughout, continent.
--- NOTE | 2024-12-07 07:57 | W.PN.INTV ---
Today's Communication / Plan
Recommendations
Replete potassium
Wean off dexmedetomidine
Transition to oral narcotic per protocol in p.m.
PT/OT, out of bed to chair
Advance diet
Possible transfer later today out of ICU
Once transferred, we will sign off. Please call with questions
Assessment
-
44-year-old female with daily fentanyl use, was in police custody when developed significant emesis, dizziness. Apparently last dose of fentanyl was 7 PM 12/04. Patient was brought to [facility] ED where she was subsequently admitted for opioid
withdrawal secondary to chronic fentanyl use. Patient was started on opioid withdrawal protocol. She developed increased nausea, tachycardia and subsequently transferred to ICU 12/05
Opioid withdrawal
Transferred to ICU 12/05
Buprenorphine protocol
Nausea/emesis, abdominal pain
Likely secondary to withdrawal
Improved
Tachycardia, improved
Mild leukocytosis
Hypokalemia
Daily fentanyl use
Plan/recommendations
At this time, patient appears to be improved objectively and subjectively
Suspect opioid withdrawal based on history
Nausea/emesis improved, now tolerating pills
Remains on Precedex
Hypokalemia noted
Moving forward
Continue Dilaudid, will transition to oral later in the p.m.
Wean Precedex to off
Compazine, Zofran as needed for nausea
Lipase, hCG normal
Continue with clonidine, increase dose as able, patch continues as well
Continue with buprenorphine protocol
DC IV fluids
Advance diet as able
folate, thiamine
Out of bed to chair, ambulate. Has yet to have bowel movement
Head of bed elevated, aspiration precautions
Chest x-ray unremarkable
Abdominal film with possible calcification, cannot tell whether this may be part of ureteral system
Workup as clinically indicated, hold off for now given lack of fevers, urinalysis unremarkable
Replete potassium
Repeat in p.m.
DVT prophylaxis: Lovenox
GI prophylaxis: Okay to discontinue Protonix. Nausea likely secondary to withdrawal symptoms
Reviewed with critical care nursing, pharmacy, respiratory care
Reviewed with primary service
For transfer to telemetry later today as able
Once transferred, we will sign off. Please call with questions
Subjective Dataa
Subjective Data
Date of Service:
Date of Service: December 07, 2024
Subjective:
Patient continues to improve overall. Denies shortness of breath, abdominal pain, chest pain. Continues with mild nausea. Remains on Precedex drip
Objective Data
Data Reviewed
Vital Signs / I&O / Oxygen:
Vital Signs
Temp Pulse Resp BP Pulse Ox
97.5 F 73 19 153/101 99
12/07/24 07:23 12/07/24 06:30 12/07/24 06:30 12/07/24 06:30 12/07/24 06:30
Intake and Output
12/06/24 12/07/24 12/08/24
06:59 06:59 06:59
Intake Total 3295.8 / 3511.7 3955.1 / 3955.1
Output Total 925 / 1175 3250 / 3250
Balance 2370.8 / 2336.7 705.1 / 705.1
SaO2 99
Physical Exam
General: Comfortable and Other (mildly tremulous)
HEENT: Normocephalic and Anicteric
Cardiovascular: S1-S2, Regular Rhythm, Murmur (n), Rub (n) and Peripheral Edema (n)
Respiratory: Wheeze (n), Crackles (n), Rhonchi (n) and Non-Labored Respirations
GI: Soft, Non Distended and Non Tender
Neurology: Awake, Alert and No Motor Deficits (moves Extremities, follows commands)
Skin: Jaundice (n), Rash (n) and Bruising (n)
Labs/Micro/Reports
Lab Data
12/07/24 02:36
12/07/24 02:36
Microbiology
12/05/24 10:43 Nose MRSA Screen - Final
No Methicillin Resistant Staphylococcus aureus isolated.
12/06/24 08:40 Nasal Swab Influenza Types A & B (JAZMÍN) - Final
Negative for Influenza A & B, NAAT
Negative results must be combined with clinical observations
and patient history.
Nucleic Acid Amplification test (NAAT)performed on the
[employer] platform.
[2024-12-07] MEDS: THIAMINE INJECTION 200 MG IV ×2 (08:09→19:56)
[2024-12-07] MEDS: SUBUTEX 4 MG SL ×4 (08:09→21:41)
[2024-12-07] MEDS: FOLVITE 1 MG PO (08:16)
--- NOTE | 2024-12-07 09:52 | W.PN.HOSP.TC ---
Addendum entered and electronically signed by Santos Watt MD 12/07/24 10:21:
#mild anemia
outpatient f/u
Original Note:
Today's Communication/Plan
-
improving
encourage ambulation
replete and follow electrolytes
Assessment / Plan
Assessment / Plan
44yo F with PMHx of drug abuse came with nausea and vomiting, concerning for opioid withdrawal. SHe uses Fentannyl and last use was hours before admission. Poor historian due to significant distress
A/P:
#opioid withdrawal
timing of last fentanyl use cannot explain severity of the symptoms
Check lipase
CT abd with unexplained abd pain and leukocytosis
Microdosing protocol (unfortunately patient vomited out oral Oxycodone - provide one dose IV)
IVF
Zofran
UDS with opioids, fentanyl, suboxone
RN to watch for obtundent or respiratory depression - naloxon PRN
#Leukocytosis
#Fever
possibly 2/2 withdrawal
Chest XR w/o pneumonia
no concern for UTI on UA
BCX NTD
Patient agreeable for HIV test
Improving off Abx
#Nephrolithiasis on abd CT
CT abd/pelvis as outpatient as Cr WNL, fever and leukocytosis resolving and no dysuria with no concern for UTI on UA - referral to Urology upon d/c
#hypokalemia
replete and follow
DVT ppx hep
Full code
I have spent at least 51min reviewing chart, test results, providing direct patient care
Anticipated Discharge: > 48 hours
Subjective/Interval History
-
Date of Service: December 07, 2024
Objective Data
-
Labs:
Laboratory Results
12/07/24 12/07/24
02:36 09:30
WBC 16.5 H
Hgb 10.2 L
Hct 29.4 L
Plt Count 368
Sodium 140 Cancelled
Potassium 3.0 L Cancelled
Chloride 109 H Cancelled
Carbon Dioxide 19 L Cancelled
BUN 3 L Cancelled
Creatinine 0.5 L Cancelled
Glucose 92 Cancelled
Calcium 8.4 Cancelled
Total Bilirubin 0.7
AST 24
ALT 12
Alkaline Phosphatase 64
Vital Signs:
Vital Signs
Temp Pulse Resp BP Pulse Ox
97.5 F 72 18 153/90 98
12/07/24 07:23 12/07/24 08:00 12/07/24 08:00 12/07/24 08:00 12/07/24 08:00
I&O
12/06/24 12/07/24 12/08/24
06:59 06:59 06:59
Intake Total 3295.8 / 3511.7 3955.1 / 4036.3 402.4 / 402.4
Output Total 925 / 1175 3250 / 3250 200 / 200
Balance 2370.8 / 2336.7 705.1 / 786.3 202.4 / 202.4
Review of Systems
-
History Source: Patient
All other systems: Reviewed and negative
Physical Exam
-
General: No Apparent Distress
HEENT: Normocephalic
Respiratory: Clear to Auscultation
Cardiac: Regular Rhythm
Neuro: Awake, Alert, Oriented, AO x 3 and Tremors
Psych: Calm
[2024-12-07] MEDS: LR IV (10:04)
[2024-12-07] MEDS: KCL PO (10:54)
[2024-12-07] MEDS: KCL 40 MEQ PO ×2 (11:00→19:55)
--- NOTE | 2024-12-07 11:34 | CM ---
Patient more alert. Initial assessment completed with patient who lives with her niece and her 4 children 19-18-14 y/o girls and a 15 y/o boy in a 2 story home plus basement with B/B on 2nd and 1/2 bath on . 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
and ambulation , drives. No DME. No in-home services. No HC-POA. No VA benefits. No psychiatric hospitalizations. No PCP. Pharmacy is [facility] ? address. Discharge POC: TBD. BCARES involved.
--- NOTE | 2024-12-07 12:06 | PTCARENOTE ---
Reassessed the patient, Off Precedex drip, RASS 0 to +1, anxious at times, PRN meds given. Patient refused to get OOB at this time, education provided, patient acknowledged.
[2024-12-07] MEDS: OXYCONTIN (CONTROLLED RELEASE) 40 MG PO ×2 (13:02→19:56)
--- NOTE | 2024-12-07 14:15 | PTCARENOTE ---
Patient OOB to bathroom independently, sitting in Recliner chair afterwards. Pending Potassium recheck @17:00.
--- NOTE | 2024-12-07 15:00 | PTCARENOTE ---
Pt received from ICU. Report gotten from HERMINIA Ugalde. Pt ambulated to bed from wheelchair. Pt is calm at this time and has no complaints. Call porter is within reach. POC ongoing.
[2024-12-07] MEDS: LOVENOX 40 MG SC (17:33)
[2024-12-07 17:55] LABS: Potassium 3.4 mmol/L (3.5-5.1)
[2024-12-08] VITALS (7 sets, daily range): BP systolic 107–149; BP diastolic 75–110
[2024-12-08] MEDS: CATAPRES 0.2 MG PO ×5 (00:06→23:14)
[2024-12-08] MEDS: OXYCONTIN (CONTROLLED RELEASE) 40 MG PO ×3 (04:03→20:16)
[2024-12-08 05:43] LABS: Hematocrit 35.3 % (37.0-47.0); Hemoglobin 12.0 g/dL (12.0-16.0); Mean Corp Hgb Conc. 34.0 g/dL (33.0-37.0); Mean Corpuscular Volume 82.9 fL (81.0-99.0); Nucleated Red Blood Cells % 0 %; Platelet Count 438 10^3/uL (130-400); Red Cell Dist. Width 13.9 % (11.5-14.5)
[2024-12-08 06:11] LABS: Blood Urea Nitrogen 3 mg/dl (7-17); Calcium 9.2 mg/dl (8.4-10.2); Carbon Dioxide 25 mmol/L (22-30); Chloride 105 mmol/L (98-107); Estimated Creatinine Clearance 114 ml/min; Glucose 131 mg/dl (70-99); Potassium 3.8 mmol/L (3.5-5.1); Sodium 135 mmol/L (135-145); eGFR > 60.00
[2024-12-08] MEDS: SUBUTEX 8 MG SL ×2 (08:52→20:16)
[2024-12-08] MEDS: THIAMINE INJECTION 200 MG IV (08:52)
[2024-12-08] MEDS: FOLVITE 1 MG PO (08:53)
--- NOTE | 2024-12-08 10:35 | W.PN.HOSP.TC ---
Today's Communication/Plan
-
Still with tremors, cont witdrawal mgmt
Assessment / Plan
Assessment / Plan
44yo F with PMHx of drug abuse came with nausea and vomiting, concerning for opioid withdrawal. SHe uses Fentannyl and last use was hours before admission. Poor historian due to significant distress
A/P:
#opioid withdrawal
timing of last fentanyl use cannot explain severity of the symptoms
Check lipase
CT abd with unexplained abd pain and leukocytosis
Microdosing protocol (unfortunately patient vomited out oral Oxycodone - provide one dose IV)
IVF
Zofran
UDS with opioids, fentanyl, suboxone
RN to watch for obtundent or respiratory depression - naloxon PRN
[facility] involved
#Leukocytosis - resolved
#Fever
possibly 2/2 withdrawal
Chest XR w/o pneumonia
no concern for UTI on UA
BC[facility] NTD
HIV test neg
resolved off Abx
#Nephrolithiasis on abd CT
CT abd/pelvis as outpatient as Cr WNL, fever and leukocytosis resolving and no dysuria with no concern for UTI on UA - referral to Urology upon d/c
#hypokalemia
replete and follow
DVT ppx hep
Full code
I have spent at least 52min reviewing chart, test results, providing direct patient care
Anticipated Discharge: 24 - 48 hours
Subjective/Interval History
-
Date of Service: December 08, 2024
Objective Data
-
Labs:
Laboratory Results
12/08/24
05:14
WBC 10.8
Hgb 12.0
Hct 35.3 L
Plt Count 438 H
Sodium 135
Potassium 3.8
Chloride 105
Carbon Dioxide 25
BUN 3 L
Creatinine 0.4 L
Glucose 131 H
Calcium 9.2
Vital Signs:
Vital Signs
Temp Pulse Resp BP Pulse Ox
98.5 F 87 18 149/96 100
12/08/24 07:00 12/08/24 07:00 12/08/24 07:00 12/08/24 07:00 12/08/24 07:00
I&O
12/07/24 12/08/24 12/09/24
06:59 06:59 06:59
Intake Total 3955.1 / 4036.3 1589.9 / 1589.9
Output Total 3250 / 3250 800 / 800
Balance 705.1 / 786.3 789.9 / 789.9
Review of Systems
-
History Source: Patient
All other systems: Reviewed and negative
Physical Exam
-
General: No Apparent Distress and Comfortable
HEENT: Normocephalic, Atraumatic and Moist Mucous Membranes
GI: Soft, Nontender and Nondistended
Neuro: Awake, Alert, Oriented, AO x 3 and Tremors
Psych: Calm
--- NOTE | 2024-12-08 16:20 | CM ---
Addendum entered by Madison Maciel 12/09/24 12:26:
Pt is not known to [facility]; per Mireya, they had never received a referral.
Note in ED record shows that patient will be taken into custody by police and would like to be notified at time of discharge.
Original Note:
CM continues to follow for discharge planning. [facility] consulted and following.
[2024-12-08] MEDS: LOVENOX 40 MG SC (18:36)
[2024-12-08] MEDS: VITAMIN B1 100 MG PO (20:17)
[2024-12-09 03:30] VITALS: BP 107/78
[2024-12-09] MEDS: OXYCONTIN (CONTROLLED RELEASE) 40 MG PO (04:11)
[2024-12-09] MEDS: CATAPRES 0.2 MG PO ×3 (05:35→23:16)
[2024-12-09 07:50] VITALS: BP 127/88
[2024-12-09] MEDS: SUBUTEX 16 MG SL (08:43)
[2024-12-09] MEDS: FOLVITE 1 MG PO (08:44)
[2024-12-09] MEDS: VITAMIN B1 100 MG PO ×2 (08:44→19:51)
--- NOTE | 2024-12-09 10:43 | W.PN.HOSP.TC ---
Today's Communication/Plan
-
Improving, possible d/c in 24h after titrating down Oxycodone
Assessment / Plan
Assessment / Plan
44yo F with PMHx of drug abuse came with nausea and vomiting, concerning for opioid withdrawal. She uses Fentanyl 1 bag q3h and last use was hours before admission. UDS also positive for Xylazine. Leukocytosis resolved off Abx. Accidental findings
of nephrolithiasis without Cr elvation or flank pain - outpatient Urology and advised hydration. Patient pending charges by law enforcement - police needs to be called upon d/c when medically appropriate for incarceration
A/P:
#opioid withdrawal
timing of last fentanyl use cannot explain severity of the symptoms
Check lipase
CT abd with unexplained abd pain and leukocytosis
Microdosing protocol (unfortunately patient vomited out oral Oxycodone - provide one dose IV)
IVF
Zofran
UDS with opioids, fentanyl, suboxone
RN to watch for obtundent or respiratory depression - naloxon PRN
[facility] involved
#Leukocytosis - resolved
#Fever
possibly 2/2 withdrawal
Chest XR w/o pneumonia
no concern for UTI on UA
BCX NTD
HIV test neg
resolved off Abx
#Nephrolithiasis on abd XR
CT abd/pelvis as outpatient as Cr WNL, fever and leukocytosis resolving and no dysuria with no concern for UTI on UA - referral to Urology upon d/c
#hypokalemia
replete and follow
DVT ppx hep
Full code
I have spent at least 52min reviewing chart, test results, providing direct patient care
Anticipated Discharge: Within 24 hours
Subjective/Interval History
-
Date of Service: December 09, 2024
Objective Data
-
Vital Signs:
Vital Signs
Temp Pulse Resp BP Pulse Ox
97.5 F 76 17 127/88 96
12/09/24 07:50 10/31/25 07:50 12/09/24 07:50 12/09/24 07:50 12/09/24 07:50
I&O
12/08/24 12/09/24 12/10/24
06:59 06:59 06:59
Intake Total 1589.9 / 1589.9 1800 / 1800
Output Total 800 / 800
Balance 789.9 / 789.9 1800 / 1800
Review of Systems
-
History Source: Patient
All other systems: Reviewed and negative
Physical Exam
-
General: No Apparent Distress and Comfortable
Skin: Warm
Neuro: Awake, Alert, Oriented, AO x 3 and Tremors
Psych: Calm
[2024-12-09] MEDS: CATAPRES PO (11:53)
[2024-12-09 12:08] VITALS: BP 107/73
[2024-12-09] MEDS: OXYCONTIN (CONTROLLED RELEASE) 20 MG PO ×2 (12:10→19:52)
[2024-12-09 15:35] VITALS: BP 120/90
[2024-12-09] MEDS: LOVENOX 40 MG SC (18:00)
[2024-12-09 23:21] VITALS: BP 126/83
--- NOTE | 2024-12-09 23:30 | PTCARENOTE ---
Pt alerted this RN that IV came out in the bathroom. Informed pt that this RN would notify [facility] team to have a new IV placed. Pt refusing new IV at this time. Plan of care ongoing.
[2024-12-10] MEDS: OXYCONTIN (CONTROLLED RELEASE) 20 MG PO (04:10)
[2024-12-10] MEDS: CATAPRES 0.2 MG PO (05:08)
--- NOTE | 2024-12-10 05:10 | PTCARENOTE ---
Pt reported to this RN nausea and one episode of emesis. This RN offered pt zofran. Pt refusing at this time. Plan of care ongoing.
[2024-12-10 07:00] VITALS: BP 111/76
[2024-12-10] MEDS: FOLVITE 1 MG PO (07:54)
[2024-12-10] MEDS: SUBUTEX 16 MG SL (07:54)
[2024-12-10] MEDS: VITAMIN B1 100 MG PO (07:54)
--- NOTE | 2024-12-10 09:59 | W.PN.HOSP.TC ---
Today's Communication/Plan
-
DC
Assessment / Plan
Assessment / Plan
44yo F with PMHx of drug abuse came with nausea and vomiting, concerning for opioid withdrawal. She uses Fentanyl 1 bag q3h and last use was hours before admission. UDS also positive for Xylazine. Leukocytosis resolved off Abx. Accidental findings
of nephrolithiasis without Cr elevation or flank pain - outpatient Urology and advised hydration. Patient pending charges by law enforcement - police needs to be called upon d/c. Patient is medically appropriate for incarceration with instructions
to continue on Suboxone. Remained without overt tremor and in good mood on the day of D/C. Declined blood test.
A/P:
#opioid withdrawal
timing of last fentanyl use cannot explain severity of the symptoms
Check lipase
CT abd with unexplained abd pain and leukocytosis
Microdosing protocol (unfortunately patient vomited out oral Oxycodone - provide one dose IV)
IVF
Zofran
UDS with opioids, fentanyl, Suboxone
RN to watch for obtundent or respiratory depression - naloxon PRN
[facility] involved
#Leukocytosis - resolved
#Fever
possibly 2/2 withdrawal
Chest XR w/o pneumonia
no concern for UTI on UA
BCX NTD
HIV test neg
resolved off Abx
#Nephrolithiasis on abd XR
CT abd/pelvis as outpatient as Cr WNL, fever and leukocytosis resolving and no dysuria with no concern for UTI on UA - referral to Urology upon d/c
#hypokalemia
replete and follow
DVT ppx hep
Full code
I have spent at least 36min reviewing chart, test results, providing direct patient care
Anticipated Discharge: Today
Subjective/Interval History
-
Date of Service: December 10, 2024
Objective Data
-
Vital Signs:
Vital Signs
Temp Pulse Resp BP Pulse Ox
97.8 F 81 17 111/76 98
12/10/24 07:00 12/10/24 07:00 12/10/24 07:00 12/10/24 07:00 12/10/24 07:00
I&O
12/09/24 12/10/24 12/11/24
06:59 06:59 05:59
Intake Total 1800 / 1800 660 / 660
Balance 1800 / 1800 660 / 660
Review of Systems
-
History Source: Patient
All other systems: Reviewed and negative
Physical Exam
-
General: No Apparent Distress
GI: Soft, Nontender and Nondistended
Neuro: Awake, Alert, Oriented and AO x 3
Psych: Calm
--- NOTE | 2024-12-10 10:05 | W.DCSUMMARY ---
Discharge Summary
Discharge Data
Date of Admission: 12/05/24
Date of Discharge: 12/10/24
-
Pending Results: No
Hospital Course
44yo F with PMHx of drug abuse came with nausea and vomiting, concerning for opioid withdrawal. She uses Fentanyl 1 bag q3h and last use was hours before admission. UDS also positive for Xylazine. Leukocytosis resolved off Abx. Accidental findings
of nephrolithiasis without Cr elevation or flank pain - outpatient Urology and advised hydration. Patient pending charges by law enforcement - police needs to be called upon d/c. Patient is medically appropriate for incarceration with instructions
to continue on Suboxone. Remained without overt tremor and in good mood on the day of D/C. Declined blood test.
I have spent at least 36min reviewing chart, test results, providing direct patient care
Patient was managed for:
#opioid withdrawal
#Leukocytosis - resolved
#Fever
#Reactive thrombocytosis
#Nephrolithiasis on abd XR
#hypokalemia
Discharge Plan
-
Patient Disposition: [facility]
Discharge Diagnosis/Procedures: opioid withdrawal
Diet: Regular
Referrals:
Balbir Enrique MD [Active, Urology] - in four to six weeks
Referral Note: for kidney stones
UNKNOWN - PT DOES,NOT KNOW [Family Provider]
Prescriptions:
New
amlodipine 5 mg tablet
5 mg PO DAILY Qty: 30 0RF
folic acid 1 mg Tablet
1 mg PO DAILY Qty: 30 0RF
buprenorphine HCl 8 mg Tablet, Sublingual
16 mg sublingual DAILY@0800 Qty: 60 0RF
thiamine mononitrate (vit B1) 100 mg Tablet
100 mg PO DAILY Qty: 30 0RF
Discharge Date and Time
Print Language: SLOVAK
--- NOTE | 2024-12-10 11:50 | PTCARENOTE ---
Discharge order in. Security made aware. Security contacted police department. Police at bedside and security. This RN obtained pt signature for discharge paperwork and police officers escorted patient out of building.
--- NOTE | 2024-12-10 11:55 | PTCARENOTE ---
Security informed that patient has personal belongings secured with them, control slip # [id number].
== END 2024-12-10 12:27 | DRG 897 ==
LOC: 3 WEST ACU 04:25
PROVIDERS: ADMITTING PHYSICIAN Internal Medicine; ATTENDING PHYSICIAN Internal Medicine; CONSULT PHYSICIAN Internal Medicine Critical Care Medicine; EMERGENCY PHYSICIAN Emergency Medicine
DX: F11.23 Opioid dependence with withdrawal (principal); D72.829 Elevated white blood cell count, unspecified; D75.838 Other thrombocytosis; N20.0 Calculus of kidney; E87.6 Hypokalemia; Z11.52 Encounter for screening for COVID-19; Z79.899 Other long term (current) drug therapy
CPT/HCPCS: 71045; 74018; 80048; 80053; 80306; 80307; 81003; 81015; 82077; 82248; 83690; 83735; 84100; 84132; 84703; 85025; 85027; 85610; 85730; 87040; 87070; 87389; 87502; 87811; 93005; 96365; 96366; 96375; 99285